=== PATIENT | male | born 1985 | race Caucasian/White ===

== ENCOUNTER 2019-11-28 15:59 | Inpatient (IN) | payer OTHER, SELFPAY ==
[2019-11-28 16:19] VITALS: BP 146/91; PULSE 65; RESP 16; TEMP 36.8; O2SAT 96; BMI 35.2
--- NOTE | 2019-11-28 16:26 | ED_ITS ---
Entered by Nanda Olivia, acting as scribe for Gladys Villaseñor HPI - Psych General: Chief Complaint: Psychiatric Symptoms Stated Complaint: SI Time Seen by Provider: 11/28/19 16:19 Source: patient Mode of arrival: ambulatory Limitations: no limitations History of Present Illness: HPI Narrative: 34 yo Male presents to ED with complaint of psychiatric symptoms. Pt states that he is having suicidal ideations. Pt states that he is depression. Pt states that he doesn't have a plan but he has been thinking about suicide. Pt states that this is his norm. MD complaint: suicidal ideation Onset (ago): unknown Duration: constant History of same: No Relieving factors: none Exacerbating factors: none Associated psychiatric symptoms: depression and suicidal ideation Associated symptoms: Reports depression and suicidal ideation Treatments prior to arrival: none If self harm: admits thoughts of self harm Review of Systems General: Reports: other (negative unless marked) Const: Denies: fever, chills, body aches, fatigue, malaise or diaphoresis Eyes: Denies: change in vision or blurry vision ENMT: Denies: throat pain, painful swallowing, hoarseness, ear pain, ear discharge, Change in hearing or nasal discharge Card: Denies: chest pain, palpitations, irregular heart rhythm, syncope, pre- syncope, shortness of breath on exertion or shortness of breath when lying down Resp: Denies: shortness of breath, productive cough, non-productive cough, wheezing, coughing up blood or chest congestion GI: Denies: abdominal pain, nausea, vomiting, vomiting blood, coffee grounds in vomit, diarrhea, constipation, cramping, blood in stool or black tarry stool : Denies: flank pain, difficulty urinating, painful urination, urinary frequency, urinary urgency, decreased urine ouput, urinary incontinence or blood in urine Musc: Denies: neck pain, back pain, extremity pain, extremity swelling, joint pain, joint swelling, joint warmth or joint stiffness Skin/Breast: Denies: rash, skin tenderness or yellow skin Neuro: Denies: headache, numbness in extremities, weakness in extremities, changes in sensation, lack of coordination, difficulty walking, dizziness, vertigo or confusion Psych: Reports: anxiety, depression and suicidal ideation Endo: Denies: excessive thirst, tired all the time, cold intolerance, excess jeyson sweating, flushing or hot flashes Anuj/Lymph: Denies: easy bruising, easy bleeding, petechiae or enlarged lymph nodes All/Imm: Denies: hives, throat swelling, tongue swelling, facial swelling or acute wheezing PFSH ED PFSH: Statuses (acute, chronic, etc) shown below reflect problem list status as previously entered and may not be historically accurate Social History Smoking and tobacco status: former smoker Physical Exam Const: COMMON NORMALS: no apparent distress, oriented x3, no limitations, healthy appearing and well nourished EXAM LIMITATIONS: no altered mental status GENERAL APPEARANCE: cooperative, well kempt and well developed ORIENTATION/CONSCIOUSNESS: Yes awake HENMT: COMMON NORMALS: normocephalic, head/scalp atraumatic, hearing grossly normal bilaterally, external ears normal, EAC's normal, external nose normal and moist oral mucous membranes HEAD & SCALP: normal to inspection, normocephalic and atraumatic FACE & SINUS: normal facial exam and face symmetric NOSE: external nose normal and nares normal EXTERNAL EAR: Yes external ears normal EXTERNAL AUDITORY CANAL: EAC's normal MOUTH: oral and palatal mucosa normal and tongue normal Eye: COMMON NORMALS: PERRL, EOMs intact bilaterally, conjunctivae normal and no scleral icterus GENERAL EYE: normal appearance of both eyes and normal light reflex CONJUNCTIVA: Yes conjunctivae normal SCLERA: sclerae normal CORNEA: Yes corneas normal PUPIL: Yes PERRL DIRECT OPHTHALMOSCOPY: Yes normal light reflex Neck/C-Spine: COMMON NORMALS: full ROM, no lymphadenopathy, supple, no meningeal signs and no JVD GENERAL: Yes normal visual inspection and Yes trachea midline CERVICAL SPINE: Yes cervical ROM normal Chest: COMMONS NORMALS: inspection of chest normal and palpation of chest normal Resp: COMMON NORMALS: normal respiratory effort, no retractions, no use of accessory muscles and clear to auscultation bilaterally EFFORT & INSPECTION: Yes able to speak in complete sentences AUSCULTATION: clear to auscultation bilaterally Cardio: COMMON NORMALS: no JVD, regular rate, regular rhythm, S1 normal heart sound, S2 normal heart sound, no gallops, no clicks, no murmurs and no rub JUGULAR VENOUS DISTENTION: no JVD RATE: regular rate RHYTHM: regular rhythm HEART SOUNDS: S1 normal and S2 normal GI: COMMON NORMALS: soft to palpation, non-tender, no hepatosplenomegaly and no masses INSPECTION: Yes normal to inspection PALPATION: Yes soft and Yes no hepatosplenomegaly : COMMON NORMALS: Yes no CVA tenderness BLADDER/KIDNEY EXAM: Yes no CVA tenderness Back/Pelvis: COMMON NORMALS: no CVA tenderness, thoracic and lumbar spine normal to inspection, no thoracic nor lumbar tenderness and thoraco-lumbar ROM normal Extremity: COMMON NORMALS: normal to inspection, full ROM, normal capillary refill, no joint enlargement, no clubbing, cyanosis or edema and no calf tenderness Neuro: COMMON NORMALS: oriented x3, CN's II-XII intact bilaterally, moves all extremities, no focal motor deficits and no sensory deficits noted MENINGEAL SIGNS: Yes no meningeal signs Psych: COMMON NORMALS: mental status grossly normal, thought process normal, cooperative, affect normal, speech normal and activity/motor behavior normal APPEARANCE: Yes well kempt SPEECH: Yes normal speech THOUGHT PROCESS: no rmal thought process Skin: COMMON NORMALS: no rashes or lesions noted, skin turgor normal, no jaundice, no petechiae and no mottling GENERAL SKIN EXAM: no rashes or lesions noted and turgor normal MDM - Psych MDM Narrative: Medical decision making narrative: Case reviewed with Dr. Adams, he agrees admit the patient to the [facility] on a voluntary admission. Lab Data: Attestation: I reviewed the patient's lab results. Labs: Lab Results 11/28/19 11/28/19 11/28/19 Range/Units 16:50 16:50 16:50 WBC 9.5 (4.0-10.0) 10^3/ uL RBC 5.41 H (4.1-5.3) 10^6/u L Hgb 15.4 (11.7-16.6) g/dL Hct 47.2 (42.0-52.0) % MCV 87.2 (80-94) fL MCH 28.5 (28.0-34.0) pg MCHC 32.6 (30.0-36.0) g/dL RDW 12.6 (12.1-15.1) % Plt Count 347 (130-400) 10^3/c mm MPV 9.2 (7.4-10.4) fL Neut % (Auto) 51.9 % Lymph % (Auto) 32.4 % Snyder % (Auto) 6.6 % Eos % (Auto) 8.0 % Baso % (Auto) 0.9 % Neut # (Auto) 4.9 (1.8-7.7) 10^3/u L Lymph # (Auto) 3.1 (0.8-4.8) 10^3/u L Snyder # (Auto) 0.6 (0.2-0.9) 10^3/u L Eos # (Auto) 0.8 (0.0-0.8) 10^3/u L Baso # (Auto) 0.1 (0.0-0.1) 10^3/u L Nucleated RBC % (a uto) 0 % Nucleated RBCs # 0.0 /100WBC Sodium 138 (136-145) mmol/L Potassium 3.9 (3.5-5.1) mmol/L Chloride 99 (98-107) mmol/L Carbon Dioxide 29 (22-29) mmol/L Anion Gap 13.9 (5-19) BUN 24 H (6-20) mg/dL Creatinine 1.2 (0.7-1.2) mg/dL GFR Calculation 69.3 L (90-130) mL/min Glucose 85 (74-109) mg/dL Calcium 10.3 H (8.6-10.0) mg/Dl Total Bilirubin 0.5 (0.15-1.2) mg/dL AST 28 (0-40) U/L ALT 31 (0-41) U/L Alkaline Phosphata se 109 (40-130) IU/L Total Protein 8.1 (6.6-8.7) g/dL Albumin 5.0 (3.5-5.2) g/dL Globulin 3.1 (1.3-4.6) g/dL TSH 2.25 (0.27-4.20) uIU/ mL Salicylates < 0.3 L (3-10) mg/dL Acetaminophen < 5.0 L (10-30) ug/mL Phenytoin 0.8 L (10-20) ug/mL Valproic Acid 2.8 L (50-100) mcg/mL Carbamazepine 2.0 L (4.0-12.0) ug/mL [place] 0.1 L (0.6-1.2) mmol/L Ethyl Alcohol < 10 (0-10) mg/dL Discharge Plan Discharge Patient Disposition: Placed in Observation Clinical Impression: Suicidal ideation Condition: Stable Referrals: [facility] [Primary Care Provider] - Coding Level of Care Code ED Pastry Cook Helper for Chg Fwd Exam Problem Focused The documentation recorded by the Corwin lipscomb Carmen, accurately reflects the service I personally performed and the decisions made by , Gladys Villaseñor n 2019 15:59
[2019-11-28 17:05] LABS: Basophils # 0.1 10^3/uL (0.0-0.1); Basophils % 0.9 %; Eosinophils # 0.8 10^3/uL (0.0-0.8); Hematocrit 47.2 % (42.0-52.0); Hemoglobin 15.4 g/dL (11.7-16.6); Lymphocytes # 3.1 10^3/uL (0.8-4.8); Lymphocytes % 32.4 %; Mean Corpuscular HGB Conc 32.6 g/dL (30.0-36.0); Mean Corpuscular Hemoglobin 28.5 pg (28.0-34.0); Mean Corpuscular Volume 87.2 fL (80-94); Mean Platelet Volume 9.2 fL (7.4-10.4); Monocytes # 0.6 10^3/uL (0.2-0.9); Monocytes % 6.6 %; Neutrophils # 4.9 10^3/uL (1.8-7.7); Neutrophils % 51.9 %; Nucleated Red Blood Cells % 0 %; Platelet Count 347 10^3/cmm (130-400); Red Blood Count 5.41 10^6/uL (4.1-5.3); Red Cell Distribution Width 12.6 % (12.1-15.1); White Blood Count 9.5 10^3/uL (4.0-10.0)
[2019-11-28 17:31] LABS: Alanine Aminotransferase 31 U/L (0-41); Alkaline Phosphatase 109 IU/L (40-130); Anion Gap 13.9 (5-19); Aspartate Amino Transferase 28 U/L (0-40); Blood Urea Nitrogen 24 mg/dL (6-20); Calcium 10.3 mg/Dl (8.6-10.0); Carbon Dioxide 29 mmol/L (22-29); Chloride 99 mmol/L (98-107); Globulin 3.1 g/dL (1.3-4.6); Glomerular Filtration Rate 69.3 mL/min (90-130); Glucose 85 mg/dL (74-109); Lithium 0.1 mmol/L (0.6-1.2); Phenytoin Dilantin 0.8 ug/mL (10-20); Potassium 3.9 mmol/L (3.5-5.1); Sodium 138 mmol/L (136-145); Thyroid Stimulating Hormone 2.25 uIU/mL (0.27-4.20); Total Bilirubin 0.5 mg/dL (0.15-1.2); Total Protein 8.1 g/dL (6.6-8.7); Valproic Acid Level 2.8 mcg/mL (50-100)
[2019-11-28 17:43] LABS: Acetaminophen < 5.0 ug/mL (10-30); Alcohol Level < 10 mg/dL (0-10); Salicylate < 0.3 mg/dL (3-10)
[2019-11-28 20:26] VITALS: BP 124/86; PULSE 66; RESP 16; O2SAT 98
[2019-11-28 22:00] VITALS: BP 123/79; PULSE 60; RESP 19; TEMP 36.9; O2SAT 97
[2019-11-28] MEDS: hyDROXYzine 25 mg Capsule 50 MG PO (22:17)
[2019-11-29 06:00] VITALS: BP 140/92; PULSE 59; RESP 20; TEMP 36.6; O2SAT 98
--- NOTE | 2019-11-29 13:11 | PM.NHP ---
Providers/Chief Complaint Admitting Physician: Jarred Adams MD Primary Care Provider: [facility] Chief Complaint: mhe HPI NPU History of Present Illness Chief complaint: I like to be alert. I don't like things that messed up with my mood. History of present illness: Darin Sharif Is a 34-year-old man who went to the [facility] locally yesterday to check in and get restarted on services. It is unclear what he said during that interview him but they forced him to calm emergency room here and be admitted to the psychiatric unit or else be involuntarily committed. He followed that directive. He says that he would like to get on medications that would help him better once he was taking. He cannot remember any of the names of any of the medications he was taking. He said in the past, Zoloft caused him problems with energy. There was some other medication that he didn't sleep at all. He believes he may have been taking bupropion but he is not sure. He does not know the dosage. He was taking all of his medications as of yesterday. At this time, he is feeling depressed and angry. He has suicidal thoughts but they are fleeting and has never had an intent or plan. He denies the presence of auditory or visual hallucinations. Emergency room note:HPI Narrative: 34 yo Male presents to ED with complaint of psychiatric symptoms. Pt states that he is having suicidal ideations. Pt states that he is depression. Pt states that he doesn't have a plan but he has been thinking about suicide. Pt states that this is his norm. Mental health history:Unknown Social history:The patient and his are from [facility]. [facility] [place]. They chose this area because it was quiet. They also look at other areas in [place]. However it is unclear why they chose [place]. There is no family connection by his report. Legal history:Public record reveals no arrests for felonies normal activity. Past medical history:Please see his emergency room nursing notes. Review of Systems Constitutional: Complains of: Anxiety and irritability. Eyes: Complains of: No eye symptoms ENT/Mouth: Complains of: No ENTM symptoms Cardiovascular: Complains of: No cardiac symptoms Respiratory: Complains of: No respiratory symptoms GI: Complains of: No GI symptoms Neuro: Complains of: No neuro symptoms Musculoskeletal: Complains of: No musculoskeletal symptoms Skin: Complains of: No skin symptoms Hematologic/Lymphatic: Complains of: No hematologic/lymphatic symptoms Endocrine: Complains of: No endocrine symptoms : Complains of: No symptoms Psych: Complains of: Depression, But deniedSuicide ideation Mental Status Exam: Patient is alert and slightly pale appearing approximately his stated age. Eye contact is increased. He is believed to be a reliable informant to the best of his ability. Unfortunately, he has difficulty providing specific information. He sits in a tense posture. His legs are bouncing constantly. This pattern increased in severity throughout the interview. Appearance: hygiene is fair; no gross neurological deficits., gait is unremarkable; AIMS=0 Speech: Speech is of normal rate and rhythm and easily understood. His voice is calm and his choice of vocabulary is measured.Questions are answered with a minimum of words. He does not elaborate on any answers. However this does not appear to be an issue of guarding. Thought processes: Thought processes are abstract. Judgment is adequate for safety. Associations: intact Psychotic processes: There is no indication of guarding or paranoia. There is no attention to the internal stimuli. Auditory and visual hallucinations are denied. Judgment: Insight is fair. Problem solving skills are adequate for safety. Orientation: The patient is oriented to person, place time and situation. Memory: no deficits noted in immediate, intermediate, or remote spheres. Attention: The patient is alert and interpersonally engaged. Language: Verbalizations are coherent. Fund of knowledge: Fund of knowledge is adequate. Affect/Mood: Affect is Tense with a depressed mood. He denied suicidal ideation Affective range Constricted Psychosis: perception And reality testing were difficult to test as he was minimally conversant. 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 He does not appear to be an imminent risk to self or others. However he is clearly in need of some assistance. It may be that suddenly stopping his medications may be increasing his irritability and distorting his thought processes. The plan at this time is for him to contact his and get further information. In the meantime, we'll provide when necessary medication to maintain emotional balance through this process. Treatment plan: Due to the psychiatric conditions and treatment listed in the Assessment and Plan - the patient requires continued hospitalization. Will provide a safe and therapeutic environment for patient.. Will continue inpatient treatment to allow for medication adjustment and monitoring. Will continue q15 min safety checks. Patient was provided a trial lorazepam 1 mg 4 anxiety. We'll continue this medication if he responds well to gather information to assist with this process. He remains a voluntary patient and is aware of his legal status. Monitor patient's mood, sleep, appetite, and behavior closely. Encourage patient to participate in individual and group therapeutic sessions on the mendoza. Estimated length of stay 5 days The expected benefits and potential side effects of patient's psychiatric medications were discussed with the patient. The patient understands and consents to treatment.CRITERIA FOR DISCHARGE: stable on medications and no longer an im Review of Systems General: Reports: 10 or more systems reviewed and unremarkable except in HPI and below Meds NPU Home Medications Medication Instructions Recorded Confirmed Type Unable to Assess 11/28/19 11/28/19 History Allergies Allergy/AdvReac Type Severity Reaction Status Date / Time No Known Allergies Allergy Verified 11/28/19 20:20 PFSH NPU PFSH: Statuses (acute, chronic, etc) shown below reflect problem list status as previously entered and may not be historically accurate Social History Smoking and tobacco status: former smoker Vitals/I&O/Wt Last Vital Signs Temp 97.9 F 11/29/19 06:00 Pulse 59 L 11/29/19 06:00 Resp 20 H 11/29/19 06:00 BP 140/92 11/29/19 06:00 Pulse Ox 98 11/29/19 06:00 Weight last 48 hrs Weight 102.058 kg Involuntary Hold Information 96 Hour Hold: 96 Hour Involuntary Admission: No Attestations NPU Medical Necessity Statement*: Patient will remain in hospital and underwent 2 nights while we establish a treatment plan to address his chosen goals. Coding Level of Care Code Acute Activity Therapy Teacher for Nancy Snider
[2019-11-29] MEDS: LORazepam 1 mg Tablet PO (13:44)
[2019-11-29 14:00] VITALS: BP 128/83; PULSE 70; RESP 20; TEMP 36.9; O2SAT 98
[2019-11-29 16:59] LABS: Add Urine Microscopic? NO
[2019-11-29 17:10] LABS: Bilirubin Urine Neg (NEGATIVE); Blood Urine Neg (Negative); Glucose Urine UA Norm (Normal); Ketones Urine Negative (Negative); Leukocyte Esterase Urine Negative (Negative); Nitrate Urine Negative (Negative); Protein Urine Neg (Negative); Specific Gravity, Urine 1.015 (1.005-1.030); Urine Appearance Clear (CLEAR); Urine Color Yellow (Yellow); Urobilinogen Urine Norm (Negative); pH Urine 7 (5-7)
[2019-11-29 17:29] LABS: Amphetamines Screen Urine Negative (Negative); Barbiturates Screen Urine Negative (Negative); Benzodiazepines Screen Urine Negative (Negative); Cocaine Screen Urine Negative (Negative); Opiate Screen Urine Negative (Negative); PCP Screen Urine Negative (Negative); THC Screen Urine Negative (Negative)
[2019-11-29] MEDS: fluoxetine 20 mg Capsule 40 MG PO (17:50)
[2019-11-29 20:00] VITALS: BP 143/87; PULSE 69; RESP 16; TEMP 36.8; O2SAT 100
[2019-11-29] MEDS: atenolol 50 mg Tablet 25 MG PO (21:16)
[2019-11-29 22:00] VITALS: BP 143/87; PULSE 69; RESP 16; TEMP 36.8; O2SAT 100
[2019-11-30 06:00] VITALS: BP 152/101; PULSE 54; RESP 16; TEMP 36.7; O2SAT 98
[2019-11-30] MEDS: fluoxetine 20 mg Capsule 40 MG PO (09:11)
--- NOTE | 2019-11-30 10:16 | P.PN_ITS ---
Subjective NPU Subjective: Interval history: Patient states that he slept much better night. He did awaken couple times. We again explored his history of mental health symptoms trying to tease out what is psychodynamic in what is consistent with his diagnosis of major depression. He was also able to provide more accurate information in that he was actually provided fluoxetine first and at a dosage of 60 mg daily, it was decided to add Wellbutrin on top of that. This is the opposite of what he told me yesterday. We discussed his general distrust of human beings and how that is a a problem long-term and something that is unreasonable that needs to be worked on. Mental Status Exam MSE Comments: Mental Status Exam: Patient is alert and slightly pale appearing approximately his stated age. Eye contact is increased. He is believed to be a reliable informant to the best of his ability. Unfortunately, he has difficulty providing specific information. He sits in a tense posture. His legs are bouncing constantly. This pattern increased in severity throughout the interview. Appearance: hygiene is fair; no gross neurological deficits., gait is unremarkable; AIMS=0 Speech: Speech is of normal rate and rhythm and easily understood. His voice is calm and his choice of vocabulary is measured.Questions are answered with a minimum of words. He does not elaborate on any answers. However this does not appear to be an issue of guarding. Thought processes: Thought processes are abstract. Judgment is adequate for safety. Associations: intact Psychotic processes: There is no indication of guarding or paranoia. There is no attention to the internal stimuli. Auditory and visual hallucinations are denied. Judgment: Insight is fair. Problem solving skills are adequate for safety. Orientation: The patient is oriented to person, place time and situation. Memory: no deficits noted in immediate, intermediate, or remote spheres. Attention: The patient is alert and interpersonally engaged. Language: Verbalizations are coherent. Fund of knowledge: Fund of knowledge is adequate. Affect/Mood: Affect is Tense with a depressed mood. He denied suicidal ideation Affective range Constricted Psychosis: perception And reality testing were difficult to test as he was minimally conversant. Cognition: Level of Consciousness: Awake, Alert, Appropriate and Follows Commands Patient Cognition Impaired: No Ability to Follow Directions: Excellent Patient Orientation (long list): Person, Place and Time Comprehension Ability: No Impairment Hallucination Type: None Delusion Description: Not Present Thought Process: Appropriate Affect: Affect Description: Calm Depressive Symptoms: Unhappiness Behavior: Patient Behavior: Appropriate Speech Pattern: Appropriate Vitals/I&O/Wt Last Vital Signs Temp 98.1 F 11/30/19 06:00 Pulse 54 L 11/30/19 06:00 Resp 16 11/30/19 06:00 BP 152/101 11/30/19 06:00 Pulse Ox 98 11/30/19 06:00 Weight last 48 hrs Weight 102.058 kg Data NPU : 11/28/19 16:50 11/28/19 16:50 A&P Additional A&P Information Diagnoses:Depressive disorder not otherwise specified Assessment:While the patient is a reliable informant, minimal information is provided. He does not appear to be an imminent risk to self or others. However he is clearly in need of some assistance. It may be that suddenly stopping his medications may be increasing his irritability and distorting his thought processes. The plan at this time is for him to contact his and get further information. In the meantime, we'll provide when necessary medication to maintain emotional balance through this process. Treatment plan: Due to the psychiatric conditions and treatment listed in the Assessment and Plan - the patient requires continued hospitalization. Will provide a safe and therapeutic environment for patient.. Will continue inpatient treatment to allow for medication adjustment and monitoring. Will continue q15 min safety checks. Patient was provided a trial lorazepam 1 mg 4 anxiety. We'll continue this medication if he responds well to gather information to assist with this process. He remains a voluntary patient and is aware of his legal status. Hospital day #3: Replace fluoxetine with Wellbutrin SR 150 mg daily and will assess potential benefit of monotherapy with this medication in the absence of fluoxetine.Continue atenolol 25 mg at bedtime for sleep and PTSD type hypervigilance. Will continue to monitor use of when necessary lorazepam. Involuntary Hold Information 96 Hour Hold: 96 Hour Involuntary Admission: No Attestations NPU Medical Necessity Statement*: Patient remained in the hospital 3-4 nights until his antidepressant is stabilized. Coding Level of Care Code Acute Floor Layer Apprentice for Nancy Snider
[2019-11-30] MEDS: buPROPion SR (12 HR) 150 mg Tablet PO (10:37)
[2019-11-30 13:37] VITALS: BP 124/84; PULSE 69; RESP 18; TEMP 37.1; O2SAT 98
[2019-11-30] MEDS: acetaminophen 325 mg Tablet 650 MG PO (14:09)
[2019-11-30 20:03] VITALS: BP 145/95; PULSE 63; RESP 17; TEMP 37.2; O2SAT 98
[2019-11-30] MEDS: atenolol 50 mg Tablet 25 MG PO (20:33)
[2019-11-30 22:00] VITALS: BP 145/95; PULSE 63; RESP 17; TEMP 37.2; O2SAT 98
[2019-11-30] MEDS: hyDROXYzine 25 mg Capsule 50 MG PO (22:12)
[2019-12-01] MEDS: acetaminophen 325 mg Tablet 650 MG PO (04:27)
[2019-12-01 05:24] VITALS: BP 128/79; PULSE 57; RESP 16; TEMP 37; O2SAT 98
[2019-12-01] MEDS: buPROPion SR (12 HR) 150 mg Tablet PO (08:22)
--- NOTE | 2019-12-01 10:43 | P.DS_ITS ---
Reason for Visit Reason for Visit: Reason For Visit: [facility] Hospital Course Hospital Course Chief complaint: I like to be alert. I don't like things that messed up with my mood. History of present illness: Darin Sharif Is a 34-year-old man who went to the [facility] locally yesterday to check in and get restarted on services. It is unclear what he said during that interview him but they forced him to calm emergency room here and be admitted to the psychiatric unit or else be involuntarily committed. He followed that directive. He says that he would like to get on medications that would help him better once he was taking. He cannot remember any of the names of any of the medications he was taking. He said in the past, Zoloft caused him problems with energy. There was some other medication that he didn't sleep at all. He believes he may have been taking bupropion but he is not sure. He does not know the dosage. He was taking all of his medications as of yesterday. At this time, he is feeling depressed and angry. He has suicidal thoughts but they are fleeting and has never had an intent or plan. He denies the presence of auditory or visual hallucinations. Emergency room note:HPI Narrative: 34 yo Male presents to ED with complaint of psychiatric symptoms. Pt states that he is having suicidal ideations. Pt states that he is depression. Pt states that he doesn't have a plan but he has been thinking about suicide. Pt states that this is his norm. Mental health history:Unknown Social history:The patient and his are from [facility]. He had to check into the [facility] because they just moved to this area. They chose this area because it was quiet. They also look at other areas in [place]. However it is unclear why they chose [place]. There is no family connection by his report. Legal history:Public record reveals no arrests for felonies normal activity. Admission Mental Status Exam: Patient is alert and slightly pale appearing approximately his stated age. Eye contact is increased. He is believed to be a reliable informant to the best of his ability. Unfortunately, he has difficulty providing specific information. He sits in a tense posture. His legs are bouncing constantly. This pattern increased in severity throughout the interview. Appearance: hygiene is fair; no gross neurological deficits., gait is unremarkable; AIMS=0 Speech: Speech is of normal rate and rhythm and easily understood. His voice is calm and his choice of vocabulary is measured.Questions are answered with a minimum of words. He does not elaborate on any answers. However this does not appear to be an issue of guarding. Thought processes: Thought processes are abstract. Judgment is adequate for safety. Associations: intact Psychotic processes: There is no indication of guarding or paranoia. There is no attention to the internal stimuli. Auditory and visual hallucinations are denied. Judgment: Insight is fair. Problem solving skills are adequate for safety. Orientation: The patient is oriented to person, place time and situation. Memory: no deficits noted in immediate, intermediate, or remote spheres. Attention: The patient is alert and interpersonally engaged. Language: Verbalizations are coherent. Fund of knowledge: Fund of knowledge is adequate. Affect/Mood: Affect is Tense with a depressed mood. He denied suicidal ideation Affective range Constricted Psychosis: perception And reality testing were difficult to test as he was minimally conversant. 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 He does not appear to be an imminent risk to self or others. However he is clearly in need of some assistance. It may be that suddenly stopping his medications may be increasing his irritability and distorting his thought processes. The plan at this time is for him to contact his and get further information. In the meantime, we'll provide when necessary medication to maintain emotional balance through this process. Treatment plan: Due to the psychiatric conditions and treatment listed in the Assessment and Plan - the patient requires continued hospitalization. Will provide a safe and therapeutic environment for patient.. Will continue inpatient treatment to allow for medication adjustment and monitoring. Will continue q15 min safety checks. Patient was provided a trial lorazepam 1 mg 4 anxiety. We'll continue this medication if he responds well to gather information to assist with this process. He remains a voluntary patient and is aware of his legal status. Hospital day #3: Replace fluoxetine with Wellbutrin SR 150 mg daily and will assess potential benefit of monotherapy with this medication in the absence of fluoxetine.Continue atenolol 25 mg at bedtime for sleep and PTSD type hy pervigilance. Will continue to monitor use of when necessary lorazepam. Hospital day #4: Patient stated that he felt that he had received maximum benefit from this inpatient hospital stay. He denied that he was having suicidal or homicidal ideation. Auditory or visual hallucinations. He denied side effects to his medications and stated his intent to return home and require further services through the [facility] system. Involuntary Hold Information 96 Hour Hold: 96 Hour Involuntary Admission: No Mental Status Exam MSE Comments: Discharge Mental Status Exam: Appearance: hygiene is good; no gross neurological deficits., gait is unremarkable; AIMS=0 Speech: Speech is of normal rate and rhythm and easily understood. Thought processes: Thought processes are abstract. Judgment is adequate for safety. Associations: intact Psychotic processes: There is no indication of guarding or paranoia. There is no attention to the internal stimuli. Auditory and visual hallucinations are denied. Judgment: Insight is fair. Problem solving skills are adequate for safety. Orientation: The patient is oriented to person, place time and situation. Memory: no deficits noted in immediate, intermediate, or remote spheres. Attention: The patient is alert and interpersonally engaged. Language: Verbalizations are coherent. Fund of knowledge: Fund of knowledge is adequate. Affect/Mood: Affect is consistent with a euthymic mood. denied suicidal ideation Affective range is appropriate. Psychosis: perception unimpaired except through cognitive distortion; reality testing intact. Discharge Data Vitals: Last Vital Signs Temp 98.6 F 12/01/19 05:24 Pulse 57 L 12/01/19 05:24 Resp 16 12/01/19 05:24 BP 128/79 12/01/19 05:24 Pulse Ox 98 12/01/19 05:24 Discharge Plan Discharge Patient Disposition: Home, Self-Care Condition: Stable Prescriptions: New bupropion HCl 150 mg Tablet Sustained-Release 12 Hr 150 mg PO DAILY Qty: 30 RF: 1 haloperidol 5 mg Tablet 5 mg PO Q4H PRN (Reason: Agitation) Qty: 20 RF: 0 atenolol 50 mg Tablet 25 mg PO BEDTIME Qty: 30 RF: 1 Discharge Orders: Discharge Order (Routine); Ordered 12/01/19 Ordered By: Gerald Peña Referrals: [facility] [Primary Care Provider] - Discharge Attestations NPU Time Spent in Discharge Care*: greater than 30 min Specific Discharge Activities: Specific discharge activities: educating patient, discussing with case assembler/social workers/dc planners, documenting/other paperwork and evaluating patient/reviewing data Coding Level of Care Code Acute Profiling Machine Setup Operator for Nancy Snider
[2019-12-01 10:47] VITALS: BP 128/79; PULSE 57; RESP 16; TEMP 37; O2SAT 98
[2019-12-01 11:09] VITALS: BP 128/79; PULSE 57; RESP 16; TEMP 37; O2SAT 98
== END 2019-12-01 11:08 | disposition home or self-care (01) | DRG 881 ==
LOC: ER 18:05 → NP 18:36
PROVIDERS: Admitting Provider Psychiatry & Neurology Psychiatry; Emergency Provider Emergency Medicine; Visit Provider Psychiatry & Neurology Psychiatry
DX: F32.9 Major depressive disorder, single episode, unspecified (principal); R45.851 Suicidal ideations; Z79.899 Other long term (current) drug therapy
CPT/HCPCS: 12345; 36415; 80053; 80156; 80164; 80178; 80185; 80307; 81003; 84443; 85025; 99284

== ENCOUNTER 2024-03-14 20:00 | Outpatient (CLI) | payer OTHER, SELFPAY | END 2024-03-14 20:01 | disposition home or self-care (01) | LOC: SLEEP 03-15 06:38 | PROVIDERS: Visit Provider Family Medicine | DX: R06.83 Snoring (principal); G47.33 Obstructive sleep apnea (adult) (pediatric) | CPT/HCPCS: 95811 ==